=== PATIENT | female | born 2000 | race Caucasian/White ===

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

== ENCOUNTER 2023-04-07 15:53 | Emergency (ER) | payer SELFPAY ==
[2023-04-07 15:55] VITALS: BP 139/94; PULSE 122; RESP 18; TEMP 37; O2SAT 97; BMI 34.3
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
[2023-04-07 16:30] VITALS: BP 144/81; PULSE 107; RESP 18; O2SAT 97
== END 2023-04-07 16:45 | disposition home or self-care (01) ==
LOC: ED 16:38
PROVIDERS: Emergency Provider Emergency Medicine; Visit Provider Emergency Medicine
DX: S80.02XA Contusion of left knee, initial encounter (principal); J45.909 Unspecified asthma, uncomplicated; V43.52XA Car driver injured in collision with other type car in traffic accident, initial encounter
CPT/HCPCS: 73564; 99284